=== PATIENT | male | born 1960 | race Caucasian/White ===

== ENCOUNTER 2020-11-29 11:57 | Emergency (ER) | payer OTHER ==
[~2020-11-29] VITALS: Ht 182.9 cm; Wt 127.0 kg
[2020-11-29] MEDS ORDERED: HYDROCODON-ACE1 EAC7 PO (13:44)
[2020-11-29 14:00] VITALS: BP 134/78
== END 2020-11-29 14:00 | disposition home or self-care (01) ==
LOC: M.ERS 11:57
DX: M79.604 Pain in right leg (principal); M19.071 Primary osteoarthritis, right ankle and foot; X50.1XXA Overexertion from prolonged static or awkward postures, initial encounter; Y93.89 Activity, other specified; Y92.69 Other specified industrial and construction area as the place of occurrence of the external cause; Y99.9 Unspecified external cause status

== ENCOUNTER → 2021-01-14 | Outpatient (CLI) | payer OTHER ==
[~2021-01-14] MED LIST: HYDROCODON-ACE1 EAC7 PO; IBUPROFEN 200200 M1 PO
== END ==
LOC: M.LAB 10:13
PROVIDERS: ATTEND Orthopaedic Surgery
DX: Z01.812 Encounter for preprocedural laboratory examination (principal); Z20.822 Contact with and (suspected) exposure to COVID-19; M19.071 Primary osteoarthritis, right ankle and foot

== ENCOUNTER → 2021-01-18 | Day surgery (SDC) | payer OTHER ==
[~2021-01-18] MED LIST changes: +ASPIRIN325 PO; +NORCO5 PO; +ROXICODONE5 M2 PO
--- NOTE | 2021-01-27 11:23 | OP ---
[facility] [address] [place] [address] OPERATIVE REPORT Name: LILIAN GRANDA Room: [facility]#: [id number] Admission: 01/18/21 Attend Phys: Neeru Chavez DO Discharge: Date of : 62 Report #: [id number] THIS REPORT FOR: cc: FAM - No family physician/PCP FAM - No family physician/PCP ~ Neeru Chavez DO DICTATED BY: Thong Bauer DO DATE OF SERVICE: 01/18/2021 PREOPERATIVE DIAGNOSIS: Right severe tibiotalar joint arthritis. POSTOPERATIVE DIAGNOSIS: Right severe tibiotalar joint arthritis. PROCEDURES: 1. Right open tibiotalar fusion with ArthroCell allograft. 2. Physician directed fluoroscopy for less than 1 hour. IMPLANTS: 1. Arthrex tibiotalar fusion plate. 2. 5 mL of ArthroCell allograft. 3. Two arthrex headless compression screws. SURGEON: Neeru Chavez DO ASSISTANTS: 1. Thong Bauer DO 2. Cecil Brand DO ANESTHESIA: General, local and regional nerve block by Anesthesia. FLUIDS: Crystalloid per Anesthesia. ESTIMATED BLOOD LOSS: 100 mL. DRAINS: None. SPECIMENS: None. COMPLICATIONS: None. CONDITION: Stable to PACU. DISPOSITION: Recovery in the PACU and discharged home. [facility] [place] [address] [place] [address] OPERATIVE REPORT Name: LILIAN GRANDA Room: [facility]#: [id number] Admission: 01/18/21 Attend Phys: Neeru Chavez DO Discharge: Date of : 62 Report #: [id number] ANTIBIOTICS: 2 grams Ancef IV preop. TOURNIQUET: Approximately 85 minutes at 300 mmHg. INDICATIONS: The patient is a very pleasant 60-year-old male who presented to our clinic with severe right ankle pain. Radiographs and a CT showed severe degenerative joint disease of the tibiotalar joint with joint space loss, subchondral cysts, osteophytes and sclerosis. He had pain for several months and had become severe in the last few months. His pain was affecting his activities of daily living. He failed conservative measures. We discussed ankle fusion. The risks, benefits, alternatives and possible complications were discussed at length including but not limited to failure of fusion, need for repeat surgery, infection, fracture, need for repeat surgery, nerve or vascular injury, DVT, PE, , anesthesia complications and others. He was understanding and wished to proceed. DESCRIPTION OF PROCEDURE: The patient was met in the preoperative area. Consent was obtained both verbally and written. The correct site was marked. He was transferred to the operative suite and placed supine on the operative table. He was given benefit of general anesthesia. A well-padded tourniquet was applied to the right upper thigh. The right lower extremity was then prepped and draped in normal sterile fashion. A timeout was performed to identify the correct patient, procedure and operative site. All in the room were in agreement. The right lower extremity was then exsanguinated with an Esmarch followed by elevation of the tourniquet. A standard anterior midline incision was carried down through skin. Blunt dissection was carried down to the level of the fascia and extensor retinacula. Care was taken to protect all neurovascular structures. We dissected through the fascia and the extensor retinacula. The tibialis anterior was retracted medially. Dissection was carried down to the level of bone. The neurovascular bundle was retracted laterally. We then performed a subperiosteal dissection exposing the distal tibia and the talus. Osteophytes were then removed with both a rongeur and osteotomes. We then were able to expose the tibiotalar joint, which was found to have near complete loss of articular cartilage both of the tibia and the talus. We then removed any residual cartilage and used rongeurs and curette to get to good subchondral bone. Osteophytes were removed from the posterior and medial malleolus. Once appropriate joint preparation was complete, we then compressed the ankle joint. We took fluoroscopic images to confirm appropriate compression across the joint. We then placed 5 mL of ArthroCell allograft into the joint. We then manually held compression across the joint. We then utilized 2 K-wires from the medial to lateral direction, proximal to distal in preparation for 2 headless compression screws. These were measured to the appropriate length and then 2 screws were placed. Appropriate positioning of this was confirmed on orthogonal fluoroscopic images. We then applied the plate anteriorly and held this temporarily with a BB [place] [address] OPERATIVE REPORT Name: LILIAN GRANDA [id number] Admission: 01/18/21 Attend Phys: Neeru Chavez DO Discharge: Date of : 62 Report #: [id number] position with x-ray again. We then drilled for the 4 talar screws and placed locking screws into the talus. We then drilled eccentrically for a cortical screw into the tibia to provide additional compression. We measured and placed an appropriately sized cortical screw. We had good compression across the joint. The remainder of the tibial screws were then drilled and filled with appropriate screw lengths. Final pictures were then taken and saved. The wound was then copiously irrigated. Hemostasis was obtained with electrocautery. The tourniquet was let down. We then reapproximated the extensor retinacula with 0 Vicryl in [id number] fashion. We then reapproximated the dermal tissue with 2-0 Vicryl in simple interrupted inverted fashion. We then used a 3-0 running nylon to close the skin. Sterile dressing was applied, which included Xeroform, 4 x 4's, Kerlix and a soft roll. We then placed a well-padded posterior splint. The patient was then extubated and transferred to the PACU in stable condition. There were no complications. All needle and sponge counts were correct x 2 at the end of the case. ATTESTATION: Dr. Chavez was present and scrubbed throughout all critical aspects of the case. <ELECTRONICALLY SIGNED> By: Neeru Chavez DO 01/27/21 [id number] Chavez DO /nt
== END | disposition home or self-care (01) ==
LOC: M.SUR
PROVIDERS: ATTEND Orthopaedic Surgery
DX: M19.071 Primary osteoarthritis, right ankle and foot (principal); M25.571 Pain in right ankle and joints of right foot; Z79.82 Long term (current) use of aspirin